=== PATIENT | female | born 1945 | race Caucasian/White ===

== ENCOUNTER 2018-04-01 12:50 | Day surgery (SDC) | payer OTHER ==
[2018-04-01] MEDS ORDERED: IOPAMIDOL (ISOVUE-M 300) 15 ML VIAL ONE (13:17)
[2018-04-01] MEDS ORDERED: LIDOCAINE 1% 300 MG/30 ML SDV ONE (13:18)
[2018-04-01] MEDS ORDERED: DEXAMETHASONE 10 MG/ML VIAL ONE (13:40)
--- NOTE | 2018-04-01 14:02 | PDRADPN ---
Radiology Procedure Note Date of Procedure: 04/01/18 Radiologist: Manuel Junior Anesthesia: Local (Specify) Pre-op Diagnosis: L4 NERVE ROOT IMPINGEMENT Post-op Diagnosis: SAME Indication: RLE NERVE PAIN Procedure: NALLELY Finding(s): EPIDUROGRAM CONFIRMED PRIOR TO MEDICATION INJECTION Inf/Abcess present in the surg proc area at time of surgery?: No Complications: NONE
== END 2018-04-01 14:30 | disposition home or self-care (01) ==
LOC: FIMAGING 12:50
PROVIDERS: ATTEND Orthopaedic Surgery
DX: M54.16 Radiculopathy, lumbar region (principal)
CPT/HCPCS: J1100; Q9967